=== PATIENT | male | born 1955 | race Caucasian/White ===

== ENCOUNTER 2022-07-10 10:28 | Inpatient (IN) | payer OTHER ==
[2022-07-10 11:00] LABS: Absolute Lymphocytes (CBC) 0.6 K/uL (0.7-4.9); Hematocrit 34.4 % (39.6-49.0); Lymphocytes % 8.3 % (15.3-44.8); MCV 96.7 fL (80-100); RBC Red Blood Cell Count 3.56 M/uL (4.33-5.43)
[2022-07-10 11:42] LABS: Bilirubin Total 0.4 mg/dL (0.2-1.0); Potassium 5.1 mEq/L (3.5-5.1); Protein, Total 6.7 g/dL (6.4-8.2)
--- NOTE | 2022-07-10 12:13 | RAD REPORT ---
EXAM DESCRIPTION: CTAbdomen Pelvis Wo Contrast - 07/10/2022 12:04 pm CLINICAL HISTORY: ABD PAIN COMPARISON: No comparisons TECHNIQUE: CT of the abdomen and pelvis was performed. All CT scans are performed using dose optimization technique as appropriate and may include automated exposure control or mA/KV adjustment according to patient size. FINDINGS: Lower chest: Coronary artery calcifications. Liver: No acute abnormality or suspicious lesions. Focal fat along the falciform ligament. Biliary: No biliary ductal dilatation. Stomach: No significant focal abnormality. Duodenum: No significant focal abnormality. Pancreas: There are a few calcifications in the region of the head of the pancreas which is presumabl y sequela of chronic pancreatitis. Spleen: No significant abnormality. Adrenal: No suspicious lesions. Kidney/ureter: No hydronephrosis. No renal calculi. Renal vascular calcifications. Retroperitoneum: No retroperitoneal adenopathy. Vascular: Atherosclerosis. Bowel: Small bowel wall thickening is present involving the duodenum and proximal jejunum. No obstruc tion identified.. Diverticulosis without diverticulitis . Normal appendix. Peritoneum: No ascites or free air. Bladder: Grossly unremarkable. Reproductive: No adnexal masses. Bones: No acute fracture. Multilevel degenerate disc disease which is moderate to severe. Retrolisthe sis of L1 on L2, L2 on L3, and L3 on L4 noted. Severe neural foraminal narrowing is present. There is likely at least moderate if not severe central spinal stenosis. These findings can be assessed with MRI if clinically indicated. Hemangioma in L1. Several Schmorl's nodes noted. Other: n/a IMPRESSION: 1. Duodenal and jejunal wall thickening concerning for an enteritis. No bowel obstructio n. 2. Incidental findings as noted above.
--- NOTE | 2022-07-10 13:08 | EDPHYS ---
Physician Documentation [facility] Name: Edy Early Age: 66 yrs Sex: Male : 1955 Arrival Date: 07/10/2022 Time: 10:28 Bed 7 Private MD: ED Physician Tommy Mcbride HPI: 07/10 16:49 This 66 yrs old Male presents to ER via Wheelchair with complaints of Abdominal Pain. kdr 16:49 Patient presents with generalized abdominal and back pain. Specifically he claims that kdr his low back "kidneys" are hurting. Patient is unclear about how long this has been going on. But it may have been for some time. Patient is being seen by a police academy program coordinator (Dr. Miranda sAh) and is noted to have kidney disease. Onset: The symptoms/episode began/occurred at an unknown time. Severity of symptoms: At their worst the symptoms were mild moderate just prior to arrival, in the emergency department the symptoms are unchanged. The patient has experienced similar episodes in the past, chronically, but today's symptoms are worse. The patient has been recently seen by a physician: Nephrology. Historical: - Allergies: 10:42 No Known Allergies; hb - Home Meds: 10:43 Unable to obtain [Active]; hb - PMHx: 10:42 Hypertension; DM2; hb - PSHx: 10:43 Unable to Obtain; hb - Immunization history:: Adult Immunizations unknown. - Social history:: Smoking status: Patient denies any tobacco usage or history of. ROS: 16:49 Constitutional: Negative for fever, chills, and weight loss, Eyes: Negative for injury, kdr pain, redness, and discharge, Neck: Negative for injury, pain, and swelling, Cardiovascular: Negative for chest pain, palpitations, and edema, Respiratory: Negative for shortness of breath, cough, wheezing, and pleuritic chest pain, : Negative for injury, bleeding, discharge, and swelling, MS/Extremity: Negative for injury and deformity, Skin: Negative for injury, rash, and discoloration, Neuro: Negative for headache, weakness, numbness, tingling, and seizure activity. Psych: Negative for depression, anxiety, suicide ideation, homicidal ideation, and hallucinations, Allergy/Immunology: Negative for hives, rash, and allergies, Endocrine: Negative for neck swelling, polydipsia, polyuria, polyphagia, and marked weight changes, Hematologic/Lymphatic: Negative for swollen nodes, abnormal bleeding, and unusual bruising. 16:49 Abdomen/GI: Positive for abdominal pain, Negative for nausea and vomiting, nausea, vomiting, and diarrhea, nausea, vomiting, diarrhea, constipation, abdominal cramps, abdominal distension. 16:52 Eyes: Positive for The patient states he has been blind for several months but has not kdr been evaluated for this nor does he have a reason why.. Exam: 16:49 Constitutional: This is a well developed, well nourished patient who is awake, alert, kdr and in no acute distress. Head/Face: Normocephalic, atraumatic. Eyes: Pupils equal round and reactive to light, extra-ocular motions intact. Lids and lashes normal. Conjunctiva and sclera are non-icteric and not injected. Cornea within normal limits. Periorbital areas with no swelling, redness, or edema. Neck: Trachea midline, no thyromegaly or masses palpated, and no cervical lymphadenopathy. Supple, full range of motion without nuchal rigidity, or vertebral point tenderness. No Meningismus. Chest/axilla: Normal chest wall appearance and motion. Nontender with no deformity. No lesions are appreciated. Cardiovascular: Regular rate and rhythm with a normal S1 and S2. No gallops, murmurs, or rubs. Normal PMI, no JVD. No pulse deficits. Respiratory: Lungs have equal breath sounds bilaterally, clear to auscultation and percussion. No rales, rhonchi or wheezes noted. No increased work of breathing, no retractions or nasal flaring. Abdomen/GI: Soft, non-tender, with normal bowel sounds. No distension or tympany. No guarding or rebound. No evidence of tenderness throughout. Back: No spinal tenderness. No costovertebral tenderness. Full range of motion. Skin: Warm, dry with normal turgor. Normal color with no rashes, no lesions, and no evidence of cellulitis. MS/ Extremity: Pulses equal, no cyanosis. Neurovascular intact. Full, normal range of motion. Neuro: Awake and alert, GCS 15, oriented to person, place, time, and situation. Cranial nerves II-XII grossly intact. Motor strength 5/5 in all extremities. Sensory grossly intact. Cerebellar exam normal. Normal gait. Psych: Awake, alert, with orientation to person, place and time. Behavior, mood, and affect are within normal limits. Vital Signs: 10:41 BP 176 / 80; Pulse 77; Resp 18; Temp 98.8(O); Pulse Ox 100% on R/A; Weight 72.57 kg; hb Height 5 ft. 7 in. ; Pain 5/10; 10:59 BP 163 / 85; Pulse 76; Resp 18; Pulse Ox 100% ; ko1 11:33 BP 170 / 80; Pulse 78; Resp 16; Pulse Ox 98% ; ko1 12:30 BP 184 / 88; Pulse 79; Resp 16; Pulse Ox 100% ; bp 10:41 Body Mass Index 25.06 (72.57 kg, 170.18 cm) hb 10:41 Pain Scale: Adult hb MDM: 13:08 Patient medically screened. kdr 16:53 Data reviewed: vital signs, nurses notes, lab test result(s), radiologic studies. [facility] 07/10 10:34 Order name: CBC with Diff; Complete Time: 12:13 [facility] 07/10 10:34 Order name: CMP; Complete Time: 12:13 [facility] 07/10 10:34 Order name: Lipase; Complete Time: 12:13 [facility] 07/10 10:55 Order name: UDS [facility] 07/10 10:55 Order name: ETOH Level; Complete Time: 12:42 [facility] 07/10 10:55 Order name: Acetaminophen; Complete Time: 12:13 [facility] 07/10 10:55 Order name: Salicylate; Complete Time: 12:13 [facility] 07/10 13:18 Order name: CBC with Automated Diff [facility] 07/10 13:18 Order name: CBC with Automated Diff [facility]MN 07/10 13:18 Order name: Comprehensive Metabolic Panel [facility]MN 07/10 13:18 Order name: Comprehensive Metabolic Panel [facility]MN 07/10 10:55 Order name: CT Head Brain wo Cont [facility] 07/10 11:47 Order name: Abdomen ; Complete Time: 12:42 [facility]MN 07/10 13:18 Order name: CONS Physician Consult EDMN 07/10 13:18 Order name: Renal [facility]MN 07/10 10:34 Order name: IV Saline Lock; Complete Time: 10:52 [facility] 07/10 10:34 Order name: Labs collected and sent; Complete Time: 10:52 [facility] 07/10 11:29 Order name: Labs - recollect needed: recollect green top for ETOH level per lab; eb Complete Time: 12:17 Administered Medications: 13:47 Not Given (Other Intervention Used): NS IV 0.45 % 1000 ml IV at 75 ml/hr continuous; bp Add 1.5 amps of Bicrab to the bag Disposition Summary: 07/10/22 13:08 Hospitalization Ordered Hospitalization Status: Inpatient Admission kdr Provider: Skyler Mix Location: Telemetry/MedSur (Inpatient) kdr Condition: Fair kdr Problem: an ongoing problem kdr Symptoms: are unchanged kdr Bed/Room Type: Standard kdr Room Assignment: 229(07/10/22 13:46) eb Diagnosis - Flank pain, end-stage renal disease, hypertensive heart disease, diabetes type 2 kdr Forms: - Medication Reconciliation Form kdr - SBAR form kdr Signatures: Dispatcher [employer] EDMS Tommy Mcbride MD MD kdr Rosemary Harvey RN RN Maryanne Potts Kathy, RN RN ko1 Ki Ren RN bp Corrections: (The following items were deleted from the chart) 11:47 10:55 Abdomen Pelvis W Con+CT.RAD.BRZ ordered. EDMS EDMS 13:46 13:08 kdr eb
--- NOTE | 2022-07-10 13:08 | ER ---
Nurse's Notes [facility] Name: Edy Early Age: 66 yrs Sex: Male : 1955 Arrival Date: 07/10/2022 Time: 10:28 Bed 7 Private MD: Diagnosis: Flank pain, end-stage renal disease, hypertensive heart disease, diabetes type 2 Presentation: 07/10 10:41 Chief complaint: Patient states: "My kidneys hurt and I need shot of Morphine." Reports hb bilateral mid back pain for unknown time frame, denies N/V/D/urinary s/s. Coronavirus screen: At this time, the client does not indicate any symptoms associated with coronavirus-19. Ebola Screen: No symptoms or risks identified at this time. Initial Sepsis Screen: Does the patient meet any 2 criteria? No. Patient's initial sepsis screen is negative. Does the patient have a suspected source of infection? No. Patient's initial sepsis screen is negative. Risk Assessment: Do you want to hurt yourself or someone else? Patient reports no desire to harm self or others. Onset of symptoms is unknown. 10:41 Method Of Arrival: Wheelchair hb 10:41 Acuity: DONALD 3 hb Historical: - Allergies: 10:42 No Known Allergies; hb - Home Meds: 10:43 Unable to obtain [Active]; hb - PMHx: 10:42 Hypertension; DM2; hb - PSHx: 10:43 Unable to Obtain; hb - Immunization history:: Adult Immunizations unknown. - Social history:: Smoking status: Patient denies any tobacco usage or history of. Screenin:57 [facility] ED Fall Risk Assessment (Adult) History of falling in the last 3 months, ko1 including since admission No falls in past 3 months (0 pts) Confusion or Disorientation No (0 pts) Intoxicated or Sedated No (0 pts) Impaired Gait No (0 pts) Mobility Assist Device Used No (0 pt) Altered Elimination No (0 pt) Score/Fall Risk Level 0 - 2 = Low Risk Oriented to surroundings, Maintained a safe environment, Educated pt \\T\\ family on fall prevention, incl call for assistance when getting out of bed, Assessed \\T\\ reinforced patient's understanding of fall precautions, Provided non-skid footwear, Hourly rounding (assess needs \\T\\ fall precautionary measures) done, Used ambulatory aids as needed (educated on \\T\\ assisted with), Used gait belt as appropriate. Abuse screen: Denies threats or abuse. Denies injuries from another. Nutritional screening: No deficits noted. Tuberculosis screening: No symptoms or risk factors identified. Assessment: 10:40 General: Appears in no apparent distress. comfortable, Behavior is cooperative, ko1 appropriate for age, anxious. Pain: Pain: Complains of pain in left mid back and right mid back. Neuro: No deficits noted. Cardiovascular: No deficits noted. Respiratory: No deficits noted. GI: Bowel sounds present X 4 quads. Abd is soft and non tender X 4 quads. : No deficits noted. EENT: No deficits noted. Derm: No deficits noted. Musculoskeletal: No deficits noted. 10:40 EENT: No deficits noted. 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 ko1 13:00 Reassessment: ADMIT INITIATED. bp Vital Signs: 10:41 BP 176 / 80; Pulse 77; Resp 18; Temp 98.8(O); Pulse Ox 100% on R/A; Weight 72.57 kg; hb Height 5 ft. 7 in. ; Pain 5/10; 10:59 BP 163 / 85; Pulse 76; Resp 18; Pulse Ox 100% ; ko1 11:33 BP 170 / 80; Pulse 78; Resp 16; Pulse Ox 98% ; ko1 12:30 BP 184 / 88; Pulse 79; Resp 16; Pulse Ox 100% ; bp 10:41 Body Mass Index 25.06 (72.57 kg, 170.18 cm) hb 10:41 Pain Scale: Adult hb ED Course: 10:30 Patient arrived in ED. ts1 10:31 Tommy Mcbride MD is Attending Physician. kdr 10:42 Triage completed. hb 10:43 Arm band placed on. hb 10:45 Ki Ren, GUMARO is Primary Nurse. bp 10:52 CBC with Diff Sent. ko1 10:52 CMP Sent. ko1 10:52 Lipase Sent. ko1 10:57 Patient has correct armband on for positive identification. Bed in low position. Call ko1 light in reach. Side rails up X2. Pulse ox on. NIBP on. 10:57 Inserted saline lock: 22 gauge in right forearm, using aseptic technique. Blood ko1 collected. 11:19 Salicylate Sent. ko1 11:19 Acetaminophen Sent. ko1 11:19 ETOH Level Sent. ko1 12:05 CT Head Brain wo Cont In Process Unspecified. EDMS 12:05 Abdomen In Process Unspecified. EDMS 13:01 Skyler Mix MD is Hospitalizing Provider. kdr 14:31 No provider procedures requiring assistance completed. Patient admitted, IV remains in ko1 place. Administered Medications: 13:47 Not Given (Other Intervention Used): NS IV 0.45 % 1000 ml IV at 75 ml/hr continuous; bp Add 1.5 amps of Bicrab to the bag Medication: 10:57 VIS not applicable for this client. ko1 Outcome: 13:08 Decision to Hospitalize by Provider. kdr 14:31 Admitted to Med/surg accompanied by tech, family with patient, via wheelchair, room ko1 229, on monitor, with chart. 14:31 Condition: stable 14:31 Discharge instructions given to Instructed on the need for admit, Demonstrated understanding of instructions. 14:52 Patient left the ED. ko1 Signatures: Dispatcher [employer] EDME Tommy Mcbride MD MD kdr Rosemary Harvey, RN RN Ki Ren, GUMARO RN Nusrat Rankin, GUMARO RN ko1 Janet Coe PAS PAS ts1 Corrections: (The following items were deleted from the chart) 10:56 10:40 Pain: ko1 ko1
[2022-07-10] MEDS ORDERED: ONDANSETRON 4 MG/2 ML VIAL IV PRN (13:14)
[2022-07-10] MEDS ORDERED: HYDROMORPHONE HCL 2 MG/ML inj IV PRN (13:16)
[2022-07-10] MEDS ORDERED: HYDRALAZINE HCL 20 MG/ML VIAL IV PRN (13:29)
[2022-07-10] MEDS ORDERED: HYDROMORPHONE HCL 1 MG/ML INJ IV PRN (13:33)
--- NOTE | 2022-07-10 13:33 | P.HP ---
Certification for Inpatient With expected LOS: >2 Midnights Practitioner: I am a practitioner with admitting privileges, knowledge of patient current condition, hospital course, and medical plan of care. Services: Services provided to patient in accordance with Admission requirements found in Title 42 Section 412.3 of the Code of Federal Regulations Patient History Date of Service: 07/10/22 Reason for admission: Acute on chronic renal failure severe hypertension History of Present Illness: Patient is 66 years of age very unkept admitted to the emergency room and is blind apparently was brought by a relative complaining of history of back pain denies any shortness of breath lower extremity edema lives in [place] no denies any fever or chills Allergies No Known Allergies Allergy (Unverified 07/10/22 13:27) Review of Systems 10-point ROS is otherwise unremarkable General: Weakness Physical Examination - Vital Signs Temperature: 98.8 F Blood Pressure: 176/80 Pulse: 77 Respirations: 18 Pulse Ox (%): 100 - Physical Exam General: Alert, Oriented x3 Cardiovascular: Regular rate/rhythm, Normal S1 S2 Gastrointestinal: Normal bowel sounds, Soft and benign, Non-distended Musculoskeletal: No clubbing, No swelling Integumentary: No rashes, No breakdown, No significant lesion Neurological: Normal speech, Normal strength at 5/5 x4 extr - Studies Laboratory Data (last 24 hrs) 07/10/22 10:45: Sodium 138, Potassium 5.1, BUN 83 H, Creatinine 8.02 H, Glucose 220 H, Total Bilirubin 0.4, AST 42 H, ALT 41, Alkaline Phosphatase 95, Lipase 156 H 07/10/22 10:45: WBC 6.80, Hgb 11.2 L, Hct 34.4 L, Plt Count 219 Assessment and Plan - Problems (Diagnosis) (1) Acute on chronic renal failure Current Visit: Yes Status: Acute Plan: Patient is 66 years of age admitted with nonspecific back pain he has acute on chronic renal failure with a creatinine of 8 mild metabolic acidosis history of uncontrolled hypertension he does not take any medication noncompliant history of diabetes apparently he does take something for it CT scan of the abdomen shows nonspecific enteritis denies any abdominal complaints no diarrhea labs reviewed there is no hydronephrosis plan to admit start on D5 water with b icarbonate as per nephrology patient is blind Qualifiers: Chronic kidney disease stage: stage 4 (severe) (2) Diabetes Current Visit: Yes Status: Acute Plan: Patient is noncompliant blood sugar elevated we will check A1c and lipid profile Qualifiers: Diabetes mellitus type: type 2 (3) Alcohol abuse Current Visit: Yes Status: Acute Plan: Po Librium Ativan, Gabapentin and Thiamine - Advance Directives Does patient have a Living Will: No Does patient have a Durable POA for Healthcare: No
--- NOTE | 2022-07-10 13:43 | P.CNS ---
Date of Consult: 07/10/22 Reason for Consult: renal failure Requesting Physician: Skyler Mix Chief Complaint: Acute on chronic renal failure severe hypertension History of Present Illness: 66M w/ PMHx of CKD, unclear stage, presumed to be 2/2 Htn/DM, Htn, DM2, & dementia who p/w mid-back pain found to have SCr 8 / GFR 7. He had [facility] in March 2022 that showed a GFR of 10. He was admitted at [facility] in [place] in March 2022 & was told he needed to start dialysis but he refused. He denies chronic NSAID use, N/V/SOB. Allergies No Known Allergies Allergy (Unverified 07/10/22 13:27) Home Medications: Aspirin [Tiffanie Chewable Aspirin] 1 tab PO DAILY 07/10/22 Review of Systems General: Weakness Eyes: Other (+bilateral eye blindness) ENT: Unremarkable Respiratory: Unremarkable Cardiovascular: Unremarkable Gastrointestinal: Unremarkable Genitourinary: Unremarkable Musculoskeletal: Unremarkable Integumentary: Unremarkable Neurological: Other (+Dementia) Lymphatics: Unremarkable Physical Examination Temp Pulse Resp BP Pulse Ox 98.8 F 77 18 176/80 H 100 07/10/22 13:36 07/10/22 13:36 07/10/22 13:36 07/10/22 13:36 07/10/22 13:36 General: Other (chronically ill-appearing) HEENT: Atraumatic, Normocephalic Neck: Supple, JVD not distended Respiratory: Clear to auscultation bilaterally, Other (symmetric chest expansion) Cardiovascular: No rubs, No murmurs Gastrointestinal: Soft and benign, No guarding Musculoskeletal: No clubbing Integumentary: No warmth Neurological: Normal tone, Dementia Urinary: Other (no bladder distention) External genitalia: Deferred Rectal: Deferred Laboratory Data (last 24 hrs) 07/10/22 10:45: Sodium 138, Potassium 5.1, BUN 83 H, Creatinine 8.02 H, Glucose 220 H, Total Bilirubin 0.4, AST 42 H, ALT 41, Alkaline Phosphatase 95, Lipase 156 H 07/10/22 10:45: WBC 6.80, Hgb 11.2 L, Hct 34.4 L, Plt Count 219 Conclusions/Impression: # ESRD presumed to be 2/2 Htn/DM GFR 7 on adm, was 10 in March 2022 Urinalysis showed heavy proteinuria, no hematuria, no pyuria Urine chemistry non-prerenal KUB unremarkable on CT A/P Insert rodas IVF for 24 hrs BNP sig elevated CPK wnl, no rhabdo BP & glycemic control May pursue kidney biopsy once BP is better controlled Pt was advised to start HD in March 2022 when he was at [facility] but he refused May initiate chronic HD during this adm if pt/family agreeable # 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
[2022-07-10] MEDS ORDERED: LABETALOL 20 MG/4ML SYRINGE IV PRN (14:41)
[2022-07-10 15:53] LABS: Barbiturates NEGATIVE (NEGATIVE); Benzodiazepines NEGATIVE (NEGATIVE); Cocaine NEGATIVE (NEGATIVE); METHAMPHETAM NEGATIVE (NEGATIVE); Methadone NEGATIVE (NEGATIVE); Opiates NEGATIVE (NEGATIVE); Phencyclidine NEGATIVE (NEGATIVE); THC Cannibis NEGATIVE (NEGATIVE)
[2022-07-10] MEDS ORDERED: LORazepam 2 MG/ML VIAL IV PRN (15:54)
[2022-07-10 16:01] VITALS: BMI 25.0
[2022-07-10] MEDS ORDERED: chlordiazePOXIDE HCl 5 MG CAP PO PRN (16:25)
[2022-07-10] MEDS: INSULIN -REGULAR HUMAN 50 UNIT/0.5 ML ML SQ SCH ×2 (16:30→20:29)
[2022-07-10] MEDS: D5W 1,000 ML with NA BICARB 8.4% 100 MEQ IV SCH ×2 (16:41)
[2022-07-10] MEDS: AMLODIPINE 5 MG TAB PO SCH (16:41)
[2022-07-10 16:52] LABS: Specific Gravity 1.012 (1.005-1.030); Urine Bacteria <20 /HPF (<20); Urine Bilirubin NEGATIVE (Negative); Urine Blood 1+ (Negative); Urine Clarity Clear (Clear); Urine Color Colorless (Yellow); Urine Glucose 3+ (Negative); Urine Protein 3+ (Negative); Urine RBC <5 /HPF (None Seen); Urine Urobilinogen Normal (Normal)
[2022-07-10 17:01] LABS: UR PROTEIN 401.8 mg/dL (<11.9); Urine Protein/Creatinine Ratio 9.34 ratio (<0.15)
[2022-07-10] MEDS: GABAPENTIN 100 MG CAP PO SCH (20:37)
[2022-07-10] MEDS: THIAMINE HCL 100 MG TABLET PO SCH (20:38)
[2022-07-10 21:11] LABS: Ferritin 32.2 ng/mL (26-388)
[2022-07-11] MEDS: D5W 1,000 ML with NA BICARB 8.4% 100 MEQ IV SCH ×2 (04:54)
[2022-07-11 06:00] LABS: Hematocrit 27.6 % (39.6-49.0); Lymphocytes % 15.9 % (15.3-44.8); MCV 95.9 fL (80-100); RBC Red Blood Cell Count 2.88 M/uL (4.33-5.43)
[2022-07-11 06:20] LABS: Albumin 2.2 g/dL (3.4-5.0); Bilirubin Total 0.3 mg/dL (0.2-1.0); Potassium 3.4 mEq/L (3.5-5.1); Protein, Total 5.2 g/dL (6.4-8.2)
[2022-07-11 06:23] LABS: Thyroid Stimulating Hormone 4.23 uIU/mL (0.358-3.740)
[2022-07-11] MEDS: INSULIN -REGULAR HUMAN 50 UNIT/0.5 ML ML SQ SCH ×4 (07:30→20:14)
[2022-07-11] MEDS: GABAPENTIN 100 MG CAP PO SCH (09:00)
--- NOTE | 2022-07-11 09:26 | P.PN ---
Subjective Date of Service: 07/11/22 Chief Complaint: Acute on chronic renal failure severe hypertension Subjective: Improving (Patient is improving back pain is better no new complaints) Review of Systems 10-point ROS is otherwise unremarkable General: Weakness Physical Examination - Vital Signs Temperature: 98.5 F Blood Pressure: 128/73 Pulse: 58 Respirations: 16 Pulse Ox (%): 100 - Physical Exam General: Alert, Oriented x3 Respiratory: Clear to auscultation bilaterally Cardiovascular: No edema, Regular rate/rhythm, Normal S1 S2 - Studies Laboratory Data (last 24 hrs) 07/10/22 10:45: Sodium 138, Potassium 5.1, BUN 83 H, Creatinine 8.02 H, Glucose 220 H, Total Bilirubin 0.4, AST 42 H, ALT 41, Alkaline Phosphatase 95, Lipase 156 H 07/10/22 10:45: WBC 6.80, Hgb 11.2 L, Hct 34.4 L, Plt Count 219 Assessment And Plan - Current Problems (Diagnosis) (1) Acute on chronic renal failure Current Visit: Yes Status: Acute Plan: Patient seen by nephrology renal function is improving blood pressure is also normal now urinalysis reviewed he has proteinuria continue with IV fluid Labs reviewed history of alcoholism Qualifiers: Chronic kidney disease stage: stage 4 (severe) (2) Diabetes Current Visit: Yes Status: Acute Plan: Patient's A1c is normal doubt underlying diabetes Qualifiers: Diabetes mellitus type: type 2 (3) Alcohol abuse Current Visit: Yes Status: Acute Plan: Po Librium Ativan, Gabapentin and Thiamine
[2022-07-11] MEDS: THIAMINE HCL 100 MG TABLET PO SCH ×2 (10:00→20:12)
[2022-07-11] MEDS: AMLODIPINE 5 MG TAB PO SCH (10:00)
[2022-07-11 10:14] LABS: Phosphorus 8.4 mg/dL (2.5-4.9)
--- NOTE | 2022-07-11 19:03 | PN ---
Date of Progress Note: 07/11/2022 Chief Complaint: Acute on chronic kidney injury. Subjective: Patient has history of advanced chronic kidney disease stage 4 secondary to hypertension , diabetes mellitus, history of dementia. Patient came with complaints of mid back pain. Was found to have elevated creatinine and a GFR of 7 and creatinine level of 8. Back in March 2022, GFR was 10. Patient was admitted to [facility] at [place] in March 2022 and it was told that he needed dialysis, but he refused dialysis. Today, he denies complaints. He denies nausea and vomiti ng. Denies metallic taste in the mouth. Physical Examination: Lungs: Clear to auscultation bilaterally. Heart: S1, S2. Abdomen: Soft. Extremities: Slight edema. Impression And Plan: 1.Patient has elevated azotemia. The patient likely has end-stage renal disease. [facility] and is on IV fluids and there is no response to IV hydration. Renal function has not imp roved. Patient is tolerating IV hydration. Patient was admitted for nausea, vomiting, and he is cur rently on IV fluid. He is advancing with p.o. intake. He does not have rhabdomyolysis. CPK level w as within normal limits and glycemia is in an acceptable control. Patient may require renal biopsy w hen blood pressure is controlled and he is ruled out for urinary tract infection. Patient has nephro tic range proteinuria, which corresponds with diabetic kidney disease, although the renal biopsy need s to be done to rule out other etiology. 2.Secondary hyperparathyroidism. Continue calcitriol and vitamin D as above. 3.Chronic metabolic acidosis due to renal failure. Continue bicarbonate as needed. Monitor blood w ork. 4.Enteritis. CT scan showed nonspecific enteritis. Further recommendation from primary team. EB/MODL Voice ID: [id number] Report ID: [id number]
[2022-07-11 19:18] LABS: Potassium 3.5 mEq/L (3.5-5.1)
[2022-07-11] MEDS: NACHLORIDE 0.45% 1,000 ML IV SCH (20:11)
[2022-07-11 21:34] LABS: Specific Gravity 1.012 (1.005-1.030); Urine Bacteria None Seen /HPF (<20); Urine Bilirubin NEGATIVE (Negative); Urine Blood 2+ (Negative); Urine Clarity Clear (Clear); Urine Color Colorless (Yellow); Urine Glucose 3+ (Negative); Urine Mucus Slight /HPF (None Seen); Urine Protein 3+ (Negative); Urine RBC 21-50 /HPF (None Seen); Urine Urobilinogen Normal (Normal)
[2022-07-12 00:44] LABS: Rheumatoid Factor NEG (NEG)
[2022-07-12 06:49] LABS: Albumin 2.2 g/dL (3.4-5.0); Bilirubin Total 0.1 mg/dL (0.2-1.0); Potassium 3.4 mEq/L (3.5-5.1); Protein, Total 5.1 g/dL (6.4-8.2)
[2022-07-12] MEDS: INSULIN -REGULAR HUMAN 50 UNIT/0.5 ML ML SQ SCH ×4 (07:30→20:26)
--- NOTE | 2022-07-12 07:46 | RAD REPORT ---
EXAM DESCRIPTION: US - Renal Ultrasound-Complete - 07/12/2022 6:17 am CLINICAL HISTORY: jeniffer, ckd Flank pain COMPARISON: <Comparisons> FINDINGS: Both kidneys demonstrate increased echogenicity compatible with underlying medical renal d isease. The right kidney measures 9.9 x 5.3 x 4.7 cm. No hydronephrosis, focal mass or perinephric fluid. The left kidney measures 10.1 x 4.6 x 4.4 cm. No hydronephrosis, focal mass or perinephric fluid. The urinary bladder is incompletely distended without gross abnormality seen. IMPRESSION: Increased echogenicity of both kidneys compatible with underlying medical renal disease.
--- NOTE | 2022-07-12 09:48 | P.PN ---
Subjective Date of Service: 07/12/22 Chief Complaint: Acute on chronic renal failure severe hypertension Subjective: Improving (Patient denies any complaints no discomfort) Review of Systems Unremarkable Physical Examination - Vital Signs Temperature: 97.6 F Blood Pressure: 144/78 Pulse: 72 Respirations: 18 Pulse Ox (%): 100 - Physical Exam General: Alert, In no apparent distress, Oriented x3 Respiratory: Clear to auscultation bilaterally Cardiovascular: No edema, Regular rate/rhythm, Normal S1 S2 Assessment And Plan - Current Problems (Diagnosis) (1) Acute on chronic renal failure Current Visit: Yes Status: Acute Plan: Patient is renal function is improving seen by network strategist on IV fluids vital signs oxygenation stable continue monitoring hypokalemia replace potassium Labs ordered Qualifiers: Chronic kidney disease stage: stage 4 (severe) (2) Diabetes Current Visit: Yes Status: Acute Plan: Patient's A1c is normal doubt underlying diabetes Qualifiers: Diabetes mellitus type: type 2 (3) Alcohol abuse Current Visit: Yes Status: Acute Plan: Po Librium Ativan, Gabapentin and Thiamine
[2022-07-12] MEDS: AMLODIPINE 5 MG TAB PO SCH (10:17)
[2022-07-12] MEDS: THIAMINE HCL 100 MG TABLET PO SCH ×2 (10:17→20:25)
[2022-07-12] MEDS: VITAMIN D 1000 UNIT TAB PO SCH (10:17)
[2022-07-12] MEDS: CALCITROL 0.25 MCG CAP PO SCH (10:18)
[2022-07-12] MEDS: NACHLORIDE 0.45% 1,000 ML IV SCH ×3 (10:18→23:23)
[2022-07-12] MEDS: POTASSIUM 25 MEQ EFFERV TAB PO SCH ×2 (10:22→20:25)
--- NOTE | 2022-07-13 00:15 | PN ---
Date of Progress Note: 07/12/2022 Chief Complaint: Acute on chronic kidney injury. Subjective: Patient has history of advanced chronic kidney disease stage 4 secondary to hypertension and diabetes mellitus. The patient came to the hospital because of mid abdomen and mid back pain. He denies hematuria, dysuria, incomplete voiding. He was found to have elevated creatinine level and GFR of 7. Creatinine level was up to 8. Patient, back in March had lab work done, his GFR was 10 . Previously, he was admitted to [facility] in March 2022, and he was told t hat he would need dialysis in near future and he refused dialysis to be started in the hospital and p atient is started on IV fluids. He denies nausea or vomiting. He denies metallic taste in his mouth . Review of Systems: Denies fever or chills. Physical Examination: Lungs: Normal respiratory effort. Heart: S1, S2. Abdomen: Soft. Extremities: Minimal edema. Impression And Plan: 1.Elevated azotemia. Patient does not have uremic symptomatology, although he has advanced chronic kidney disease, stage 5 chronic kidney disease and he will need to start hemodialysis for advanced ch ronic kidney disease to prevent uremia. I had a long discussion with the patient. The dialysis will be necessary to treat hyperazotemia. Patient is tolerating IV fluids. Continue IV fluids and monit or for any evidence of fluid overload. Patient had a CK level check and he does not have rhabdomyoly sis. Patient has nephrotic range proteinuria, which corresponds with diabetic kidney disease, althou gh renal biopsy needs to be done to rule out other etiology. Renal ultrasound did not demonstrate hy dronephrosis. There is increased kidney echogenicity corresponding with medical renal disease. 2.Secondary hyperparathyroidism. Continue calcitriol and vitamin D and monitor phosphorus level, ca lcium level, and intact PTH. Re-evaluate 25-hydroxy vitamin D. 3.Chronic metabolic acidosis due to renal failure. Continue bicarbonate according to lab results. 4.Enteritis. CT scan show nonspecific enteritis. At this point, patient is tolerating p.o. intake and IV fluids were started for acute on chronic kidney injury. There is some improvement in serum cr eatinine level, although lab work showed GFR of 8 and this will require dialysis treatment. EB/MODL Voice ID: [id number] Report ID: [id number]
[2022-07-13 03:26] LABS: RPR (Rapid Plasma Reagin) NON-REACT (NON-REACT)
[2022-07-13 04:36] LABS: Hepatitis B Core Ab, Total Nonreactive (Nonreactive); Hepatitis B surface AG Interp. Nonreactive (Nonreactive); Hepatitis C Virus Ab Nonreactive (Nonreactive)
[2022-07-13 04:42] LABS: Hepatitis B Surface Ab - Quant < 3.10 mIU/mL (<8.0)
[2022-07-13 07:00] LABS: Absolute Lymphocytes (CBC) 0.8 K/uL (0.7-4.9); Hematocrit 27.9 % (39.6-49.0); Lymphocytes % 12.8 % (15.3-44.8); MPV 7.2 fL (7.6-11.3); RBC Red Blood Cell Count 2.87 M/uL (4.33-5.43)
--- NOTE | 2022-07-13 07:06 | P.PN ---
Date of Service: 07/13/22 Subjective: complains of right posterior chest/upper back pain no BM since before hospitalization; +flatus some confusion this morning; repeating questions no acute events overnight ROS: 10 point ROS as noted above, otherwise negative Physical Exam: GEN: Alert, oriented, NAD, confused/repetitive questioning HEENT: blind, no swelling CV: Regular rate and rhythm, no edema Pulm: Nonlabored respirations on room air ABD: Soft, nontender, nondistended Integumentary: No rashes Neuro: Normal speech, normal affect Renner in place vitals reviewed Problem List: Acute on chronic renal failure, CKD5 ESRD Hypokalemia Enteritis Hypertension DM2 Anemia Dementia Alcohol abuse legally blind Acute on chronic renal failure, CKD5 ESRD Hypokalemia Pt was advised to start HD in March 2022 for GFR 10 - refused at the time nephrotic range proteinura likely secondary to diabetic kidney disease no hydronephrosis on imaging Nephrology consulted Recommends HD continue IVF mild improvement of GFR biopsy Renner in place renal u/s 07/12 - Increased echogenicity of both kidneys IVF IV bicarb PT consult Enteritis CT Abdomen 07/10 - Duodenal and jejunal wall thickening concerning for an enteritis denies abd pain 07/13, tolerating PO DM2 Patient's A1c is normal, controlled Hypertension Anemia Dementia Continue home medcations Continue Supportive care Alcohol abuse Counseled on need for cessation of all alcohol Po Librium Ativan, Gabapentin and Thiamine some confusion, unclear what baseline is Code: Full Dispo: Home several days
[2022-07-13 07:14] LABS: Albumin 2.2 g/dL (3.4-5.0); Bilirubin Total 0.2 mg/dL (0.2-1.0); Potassium 3.7 mEq/L (3.5-5.1); Protein, Total 5.2 g/dL (6.4-8.2)
[2022-07-13] MEDS: INSULIN -REGULAR HUMAN 50 UNIT/0.5 ML ML SQ SCH ×4 (07:30→21:00)
[2022-07-13] MEDS: VITAMIN D 1000 UNIT TAB PO SCH (08:25)
[2022-07-13] MEDS: POTASSIUM 25 MEQ EFFERV TAB PO SCH ×2 (08:25→21:36)
[2022-07-13] MEDS: AMLODIPINE 5 MG TAB PO SCH (08:25)
[2022-07-13] MEDS: CALCITROL 0.25 MCG CAP PO SCH (08:25)
[2022-07-13] MEDS: THIAMINE HCL 100 MG TABLET PO SCH ×2 (08:25→21:36)
[2022-07-13] MEDS: CODEINE 30MG/APAP 300MG TAB PO PRN (09:42)
[2022-07-13] MEDS: NACHLORIDE 0.45% 1,000 ML IV SCH (10:26)
[2022-07-14] MEDS: NACHLORIDE 0.45% 1,000 ML IV SCH ×3 (00:20→13:40)
[2022-07-14 03:40] LABS: Hematocrit 27.6 % (39.6-49.0); MCV 96.7 fL (80-100); MPV 7.2 fL (7.6-11.3); RBC Red Blood Cell Count 2.85 M/uL (4.33-5.43)
--- NOTE | 2022-07-14 03:48 | PN ---
Date of Progress Note: 07/13/2022 Chief Complaint: Advanced chronic kidney disease, end-stage renal disease. History Of Present Illness: The patient presented with worsening of azotemia. Prior to this admissi on, he developed some generalized weakness as well as abdominal pain and he was started on IV fluids for hydration. On arrival to this hospital, blood work showed severe hyperazotemia. The patient has a Renner catheter and he has nonoliguric urine output. Ultrasound, July 11, showed increased echogeni city of both kidneys secondary to medical kidney disease. I discussed with the patient at the [facility] e plan to proceed with hemodialysis. The patient has not made decision and his daughter also was enc ouraging him to start dialysis because he has advanced chronic kidney disease and may have a risk of uremia in the near future if he does not start dialysis. The patient has not made decision to procee d with renal biopsy. He has history of diabetes mellitus and his diabetes has been well controlled. Review of Systems: Denies fever, chills. Physical Examination: Lungs: Normal respiratory effort. Heart: S1, S2. Abdomen: Soft. Extremities: No edema. Impression And Plan: Acute on chronic kidney injury, worsening of the hyperazotemia secondary to gas troenteritis. Although there is underlying advanced chronic kidney disease and renal ultrasound joni esponds with end-stage renal disease, the patient may need to start dialysis in near future. Otherwi se, he may develop uremic symptoms. I had a long discussion with the patient and his daughter at the bedside. The patient und erstands risk of uremia. EB/MODL Voice ID: [id number] Report ID: [id number]
[2022-07-14 04:13] LABS: Potassium 3.9 mEq/L (3.5-5.1)
[2022-07-14] MEDS: INSULIN -REGULAR HUMAN 50 UNIT/0.5 ML ML SQ SCH ×4 (07:30→20:23)
[2022-07-14] MEDS: THIAMINE HCL 100 MG TABLET PO SCH ×2 (09:00→20:21)
[2022-07-14] MEDS: CALCITROL 0.25 MCG CAP PO SCH (09:00)
[2022-07-14] MEDS: VITAMIN D 1000 UNIT TAB PO SCH (09:00)
[2022-07-14] MEDS: AMLODIPINE 5 MG TAB PO SCH (09:00)
[2022-07-14] MEDS: POTASSIUM 25 MEQ EFFERV TAB PO SCH ×2 (09:00→19:12)
[2022-07-14] MEDS ORDERED: SOD FERRIC GLUC COMPLX/SUCROSE 250 MG in NA CHLORIDE 0.9% 250 ML IV SCH (15:00)
--- NOTE | 2022-07-14 16:36 | PN ---
Date of Progress Note: 07/14/2022 Subjective: The patient was admitted with progression of his chronic kidney disease. The patient had chronic kidney disease, advanced, seen in the office before, the patient in denial. The patient is still refusing renal replacement therapy. Physical Examination: Vital Signs: When I saw the patient; blood pressure 170/91, pulse of 80. The patient legally blind. Chest: Clear to auscultation. Heart: S1, S2. Regular. Abdomen: Soft, nontender. Extremity: No edema. Neuro: The patient legally blind. No tremor. Laboratory Data: Hemoglobin 9.3. Sodium 139, potassium 3.9, bicarb 25, BUN 70, creatinine 6, GFR of 10, calcium 8.3. Serum protein electrophoresis is still pending. Serology is still pending. Hepatitis was negative. Current Medications: The patient on include; 1. Amlodipine 5 mg. 2. Labetalol. 3. Hydralazine. 4. Insulin. 5. Normal saline. 6. Codeine. 7. KCl. 8. Calcitriol. Assessment And Plan: 1. Chronic kidney disease, stage 5. No uremic symptoms. No hyperkalemia. No acidosis. 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 The patient will need to be started on dialysis in the near future. The patient is still on denial, refused any dialysis for the time being. The patient looked to me normal volume. I am going to hold IV fluid and we will continue to monitor the patient. 2. Hypertension, not controlled. I am going to go ahead and increase his amlodipine 10 mg for better blood pressure control and we will add beta-vandana and we will follow up the patient. 3. Secondary hyperparathyroidism. Continue calcitriol. 4. Anemia of chronic kidney disease with iron deficiency anemia. I will start the patient on IV iron and we will continue to follow up the patient. 5. Diabetes, stable. We will monitor. time spend exam the patient face to face , reviewing the DATA lab and Radiology, placing the order, discussing the case with the patient ,reviewing the care plan with steam turbine operator including the nursing staff , discussing with the hospitalist >35 min JULISA Voice ID: [id number] Report ID: [id number] [facility]
--- NOTE | 2022-07-14 18:01 | P.PN ---
Subjective Date of Service: 07/14/22 Chief Complaint: Acute on chronic renal failure severe hypertension Patient found to be a bit confused this mrsanjeev. He thought he was in a bank. Nursing staff report he refused all treatment today. Physical Examination - Vital Signs Temperature: 98 F Blood Pressure: 161/97 Pulse: 80 Respirations: 14 Pulse Ox (%): 100 Assessment And Plan - Plan Physical Exam: GEN: Alert, oriented, NAD, confused, HEENT: blind. CV: Regular rate and rhythm, no edema Pulm: Clear to auscultation bilaterally, adequate breath sounds bilaterally. ABD: Soft, nontender, nondistended Integumentary: No rashes Neuro: Normal speech, normal affect Renner in place vitals reviewed Diagnosis Acute on chronic renal failure, CKD5 ESRD Hypokalemia Enteritis Hypertension DM2 Anemia Dementia Alcohol abuse legally blind Acute on chronic renal failure, CKD5 ESRD Hypokalemia Pt was advised to start HD in March 2022 for GFR 10 - refused at the time nephrotic range proteinura likely secondary to diabetic kidney disease no hydronephrosis on imaging Nephrology is following Recommends HD in the near future. IV fluid discontinued by nephrology mild improvement of GFR Renner in place renal u/s 07/12 - Increased echogenicity of both kidneys IV bicarb discontinued PT consult Enteritis CT Abdomen 07/10 - Duodenal and jejunal wall thickening concerning for an enteritis denies abd pain 07/13, Patient is tolerating PO DM2 Patient's A1c is normal, controlled Hypertension Anemia Dementia Continue home medcations Continue Supportive care Alcohol abuse Counseled on need for cessation of all alcohol Po Librium Ativan, Gabapentin and Thiamine Confusion probably related to alcohol withdrawal. Ativan as needed for agitation.
[2022-07-14] MEDS ORDERED: LORazepam 2 MG/ML VIAL IV PRN (18:03)
[2022-07-14] MEDS: CODEINE 30MG/APAP 300MG TAB PO PRN (18:08)
[2022-07-14] MEDS: carvediloL 6.25 MG TAB PO SCH (20:21)
[2022-07-15 07:09] LABS: Potassium 3.6 mEq/L (3.5-5.1)
[2022-07-15] MEDS: INSULIN -REGULAR HUMAN 50 UNIT/0.5 ML ML SQ SCH ×4 (07:30→20:30)
[2022-07-15] MEDS: AMLODIPINE 10 MG TAB PO SCH (08:30)
[2022-07-15] MEDS: POTASSIUM 25 MEQ EFFERV TAB PO SCH ×2 (08:30→19:15)
[2022-07-15] MEDS: THIAMINE HCL 100 MG TABLET PO SCH ×2 (08:30→20:46)
[2022-07-15] MEDS: VITAMIN D 1000 UNIT TAB PO SCH (08:30)
[2022-07-15] MEDS: CALCITROL 0.25 MCG CAP PO SCH (08:30)
[2022-07-15] MEDS: carvediloL 6.25 MG TAB PO SCH ×2 (08:31→20:43)
[2022-07-15] MEDS ORDERED: CLONIDINE 0.1 MG/PATCH TD SCH (10:00)
--- NOTE | 2022-07-15 11:05 | P.DS ---
Admission Date: 07/10/22 Discharge Date: 07/17/22 Disposition: ROUTINE DISCHARGE Discharge Condition: FAIR Reason for Admission: Acute on chronic renal failure severe hypertension Brief History of Present Illness: Patient is 66 years of age presented to the emergency room with complaint of back pain. Patient reported bilateral back pain and felt as if his kidneys were hurting. He denied any shortness of breath. He denied any fever or chills. Blood work showed elevated creatinine above baseline. Alcohol abuse also reported. Patient was hospitalized for further management. Hospital Course: Diagnosis Acute on chronic renal failure, CKD5 ESRD Hypokalemia Enteritis Hypertension DM2 Anemia Dementia Alcohol abuse legally blind Patient admitted to the medical floor and the following medical problems addressed: Acute on chronic renal failure, CKD5 ESRD Hypokalemia Pt was advised to start HD in March 2022 for GFR 10 -he refused at the time He has nephrotic range proteinura likely secondary to diabetic kidney disease no hydronephrosis on imaging Nephrology saw and assisted with management Recommends HD in the near future. Patient treated briefly with IV fluid and then discontinued. renal u/s 07/12 - Increased echogenicity of both kidneys He was also managed briefly with IV bicarb. Enteritis CT Abdomen 07/10 - Duodenal and jejunal wall thickening concerning for an enteritis denies abd pain 07/13, Symptoms resolved and patient tolerated PO DM2 Patient's A1c is normal, controlled Hypertension Anemia Dementia Continued home medcations Alcohol abuse Counseled on need for cessation of all alcohol He was managed with Po Librium Ativan, Gabapentin and Thiamine Initial confusion probably related to alcohol withdrawal. Mental status is currently clear. Currently undergoing PT. Patient is currently asymptomatic and deemed stable for discharge. Patient discharged to SNF for skilled rehab. Vital Signs/Physical Exam: Temp Pulse Resp BP Pulse Ox 97.6 F 63 16 194/96 H 98 07/15/22 08:00 07/15/22 08:31 07/15/22 08:00 07/15/22 08:31 07/15/22 08:00 General: Alert, In no apparent distress, Oriented x3 HEENT: Mucous membr. moist/pink Neck: JVD not distended Respiratory: Clear to auscultation bilaterally, Normal air movement Cardiovascular: Regular rate/rhythm, Normal S1 S2 Gastrointestinal: Soft and benign, Non-distended Musculoskeletal: No contractures Integumentary: No rashes Neurological: Normal strength at 5/5 x4 extr Laboratory Data at Discharge: WBC 7.00 thou/uL (4.3-10.9) 07/14/22 02:52 Hgb 9.3 g/dL (13.6-17.9) L 07/14/22 02:52 Hct 27.6 % (39.6-49.0) L 07/14/22 02:52 Plt Count 148 thou/uL (152-406) L 07/14/22 02:52 Sodium 143 mEq/L (136-145) 07/15/22 06:40 Potassium 3.6 mEq/L (3.5-5.1) 07/15/22 06:40 BUN 70 mg/dL (7-18) H 07/15/22 06:40 Creatinine 5.73 mg/dL (0.70-1.30) H 07/15/22 06:40 Glucose 105 mg/dL (74-106) 07/15/22 06:40 Phosphorus 8.4 mg/dL (2.5-4.9) H 07/11/22 09:39 Magnesium 3.0 mg/dL (1.6-2.4) H 07/11/22 09:39 Total Bilirubin 0.2 mg/dL (0.2-1.0) 07/13/22 06:42 AST 21 U/L (15-37) 07/13/22 06:42 ALT 25 U/L (16-61) 07/13/22 06:42 Alkaline Phosphatase 57 U/L (45-117) 07/13/22 06:42 Triglycerides 208 mg/dL (<150) H 07/12/22 05:17 Cholesterol 195 mg/dL (<200) 07/12/22 05:17 HDL Cholesterol 78 mg/dL (40-60) H 07/12/22 05:17 Cholesterol/HDL Ratio 2.50 07/12/22 05:17 Lipase 156 U/L (13-75) H 07/10/22 10:45 Home Medications: Aspirin [Tiffanie Chewable Aspirin] 1 tab PO DAILY 07/10/22 Amlodipine [Norvasc*] 10 mg PO DAILY #30 tab 07/15/22 Calcitrol [Rocaltrol*] 0.25 mcg PO DAILY #30 cap 07/15/22 Cholecalciferol (Vitamin D3) [Vitamin D 1000 Iu Tab*] 2,000 unit PO DAILY #60 tab 07/15/22 Clonidine Patch [Catapres-Tts 1*] 0.1 mg TD EVERY 7TH DAY #4 pat 07/15/22 Thiamine HCl [Vitamin B-1*] 200 mg PO BID #30 tab 07/15/22 carvediloL [Coreg*] 6.25 mg PO BID #60 tab 07/15/22 New Medications: Clonidine Patch [Catapres-Tts 1*] 0.1 mg TD EVERY 7TH DAY #4 pat carvediloL [Coreg*] 6.25 mg PO BID #60 tab Amlodipine [Norvasc*] 10 mg PO DAILY #30 tab Calcitrol [Rocaltrol*] 0.25 mcg PO DAILY #30 cap Thiamine HCl [Vitamin B-1*] 200 mg PO BID #30 tab Cholecalciferol (Vitamin D3) [Vitamin D 1000 Iu Tab*] 2,000 unit PO DAILY #60 tab Diet: Renal Activity: Ad nena Followup: NONE,NONE [Primary Care Provider] - Erica Nunez MD [ACTIVE - CAN ADMIT] - (Within 2 weeks) Time spent managing pt's care (in minutes): 40
--- NOTE | 2022-07-15 11:43 | PN ---
Date of Progress Note: 07/15/2022 Subjective: The patient was admitted with hypertension, uremic disease. The patient's workup showed chronic kidney disease. The patient nonoliguric, no hyperkalemia, in fact hypokalemic. Physical Examination: Vital Signs: Blood pressure 194/96, pulse of 63, afebrile. Chest: Clear to auscultation. Heart: S1, S2. Regular. Extremities: No edema. Neurologic: Alert. No focality. No tremor. Laboratory Data: Hemoglobin 9.3. Sodium 143, potassium 3.6, bicarb 23, BUN 70, creatinine 5.7, GFR of 10, calcium 8.6. PC ratio 9 g. Serology; hepatitis was negative, HIV negative. Serum protein electrophoresis is still pending. Renal ultrasound showing small sized kidneys bilateral, 9.9 and 10.1. Current Medications: The patient on include amlodipine 10 mg, carvedilol 6.25, insulin, calcitriol, cholecalciferol, and thiamine. Assessment And Plan: 1. 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 I do not see the need to initiate urgently any renal replacement therapy, especially that the patient also refused to be initiated right now. I had long discussion with the patient regarding the need for close monitoring as the patient may need renal replacement therapy in the next few months. The patient verbalized understanding. We will follow up the workup including serum protein electrophoresis and the rest of the serology as outpatient. We will keep holding any KATHERIN inhibitor and ARB. 2. Hypokalemia. We will supplement cautiously. 3. Anemia of iron deficiency anemia. Started the patient on IV iron, received a dose. We will continue to monitor. 4. Hypertension, not controlled. Add clonidine. 5. Hypokalemia. We will supplement cautiously. 6. Diabetes as by primary. 7. Alcoholic dependent. Continue thiamine. 8. Secondary hyperparathyroidism. Continue calcitriol. The patient cleared from the Renal standpoint for discharge planning to follow up in the office in 2-3 weeks. time spend exam the patient face to face , reviewing the DATA lab and Radiology, placing the order, discussing the case with the patient ,reviewing the care plan with call or contact centre team leader including the nursing staff , discussing with the hospitalist >35 min CONRADO/CHEIKH Voice ID: [id number] Report ID: [id number] TIAN
--- NOTE | 2022-07-15 15:13 | P.PN ---
Subjective Date of Service: 07/15/22 Chief Complaint: Acute on chronic renal failure severe hypertension Patient has no new complaints today. Mental status is clear. Physical Examination - Vital Signs Temperature: 97.6 F Blood Pressure: 194/96 Pulse: 63 Respirations: 16 Pulse Ox (%): 98 Assessment And Plan - Plan Physical Exam: GEN: Alert, oriented, NAD, confused, HEENT: blind. CV: Regular rate and rhythm, no edema Pulm: Clear to auscultation bilaterally, adequate breath sounds bilaterally. ABD: Soft, nontender, nondistended Integumentary: No rashes Neuro: Normal speech, normal affect Rodas in place vitals reviewed Diagnosis Acute on chronic renal failure, CKD5 ESRD Hypokalemia Enteritis Hypertension DM2 Anemia Dementia Alcohol abuse legally blind Acute on chronic renal failure, CKD5 ESRD Hypokalemia Pt was advised to start HD in March 2022 for GFR 10 - refused at the time nephrotic range proteinura likely secondary to diabetic kidney disease no hydronephrosis on imaging Nephrology is following Recommends HD in the near future. No dialysis this hospital admission. IV fluid discontinued by nephrology Discontinue rodas renal u/s 07/12 - Increased echogenicity of both kidneys IV bicarb discontinued Continue PT Enteritis CT Abdomen 07/10 - Duodenal and jejunal wall thickening concerning for an enteritis denies abd pain 07/13, Patient is tolerating PO DM2 Patient's A1c is normal, controlled Hypertension Anemia Dementia Continue home medcations Continue Supportive care Alcohol abuse Counseled on need for cessation of all alcohol Po Librium Ativan, Gabapentin and Thiamine Confusion probably related to alcohol withdrawal. Currently stable with no symptoms or signs of alcohol withdrawal. Clinically stable for discharge. Family looking at skilled rehab. Social service consulted to assist with SNF disposition.
[2022-07-15 22:28] LABS: Albumin, (SPE) 2.8 g/dL (3.8-4.8); Alpha-1-Globulins 0.3 g/dL (0.2-0.3); Alpha-2-Globulins 0.6 g/dL (0.5-0.9); Gamma Globulins 0.5 g/dL (0.8-1.7); INTERPRETATION REPORT
[2022-07-16] MEDS: INSULIN -REGULAR HUMAN 50 UNIT/0.5 ML ML SQ SCH ×4 (07:30→20:32)
[2022-07-16] MEDS: CALCITROL 0.25 MCG CAP PO SCH (08:40)
[2022-07-16] MEDS: POTASSIUM 25 MEQ EFFERV TAB PO SCH ×2 (08:40→20:29)
[2022-07-16] MEDS: VITAMIN D 1000 UNIT TAB PO SCH (08:40)
[2022-07-16] MEDS: AMLODIPINE 10 MG TAB PO SCH (08:40)
[2022-07-16] MEDS: carvediloL 6.25 MG TAB PO SCH ×2 (08:40→20:45)
[2022-07-16] MEDS: THIAMINE HCL 100 MG TABLET PO SCH ×2 (08:40→20:32)
[2022-07-16 09:46] VITALS: O2SAT 100
--- NOTE | 2022-07-16 11:45 | PN ---
Date of Progress Note: 07/16/2022 Subjective: Patient was admitted with acute kidney injury on advanced chronic kidney disease. It wa s secondary to diabetes nephropathy. The patient did not have any uremic symptoms. The patient is s till refusing dialysis. Physical Examination: Vital Signs: Blood pressure 160/88, pulse of 63, afebrile. Chest: Clear to auscultation. Heart: S1, S2. Regular. Abdomen: Soft, nontender. Extremities: No edema. Neuro: Legally blind. No tremor. No flapping. Laboratory Data: Hemoglobin 9.3. Sodium 143, potassium 3.6, bicarb 23, BUN 70, creatinine 5.7, calc ium 8.3. Current Medications: Patient on, includes: 1.IV iron. 2.Amlodipine 10 mg. 3.Carvedilol 6.25 b.i.d. 4.Clonidine patch. 5.Zofran. Assessment And Plan: 1.Chronic kidney disease, stage 5, secondary to diabetes nephropathy, hypertension, nephrosclerosis with normal sized kidney, nephrotic range proteinuria. No hyperkalemia. No acidosis. No other urem ic symptoms. I do not see any urgent need to initiate renal replacement therapy at this time. I had long discussion with the patient. Patient still on denial and refused dialysis currently, which aga in there is no urgent need for that. I also spoke with sister over the phone, explained the case for her. Apparently, patient's living condition is poor and Adult Protective Services has been involved trying to get his house in order. We will follow up. 2.Hypokalemia. We will continue p.r.n. cautious supplement as patient on advanced chronic kidney di sease. 3.Hypertension, not controlled. We just added the clonidine yesterday. Blood pressure slightly bet ter than before. We will monitor further response. 4.Diabetes as by primary. 5.Alcohol dependent. Continue current p.r.n. treatment with thiamine. 6.Secondary hyperparathyroidism: Continue calcitriol. 7.Anemia of chronic kidney disease. Serum protein electrophoresis was negative for any M-spike. I am going to continue IV iron and we will follow up. No need for AISHA for the time being as just we st arted the IV iron. 8.Deconditioning, poor living situation. home weatherizing worker on board. Plan for temporary SNF. CONRADO/CHEIKH Voice ID: [id number] Report ID: [id number]
[2022-07-16 12:05] LABS: KAPPA LIGHT CHAIN, FREE SERUM 89.9 mg/L (3.3-19.4)
[2022-07-16 14:55] LABS: SARS-CoV-2 Antigen Rapid Res Negative (Negative)
--- NOTE | 2022-07-16 16:58 | P.PN ---
Subjective Date of Service: 07/16/22 Chief Complaint: Acute on chronic renal failure severe hypertension Patient has no new complaints today. No issues overnight. Patient is tolerating diet. Physical Examination - Vital Signs Temperature: 98.6 F Blood Pressure: 118/69 Pulse: 67 Respirations: 16 Pulse Ox (%): 100 Assessment And Plan - Plan Physical Exam: GEN: Alert, oriented, NAD, confused, HEENT: blind. CV: Regular rate and rhythm, no edema Pulm: Clear to auscultation bilaterally, adequate breath sounds bilaterally. ABD: Soft, nontender, nondistended Integumentary: No rashes Neuro: Normal speech, normal affect Rodas in place vitals reviewed Diagnosis Acute on chronic renal failure, CKD5 ESRD Hypokalemia Enteritis Hypertension DM2 Anemia Dementia Alcohol abuse legally blind Acute on chronic renal failure, CKD5 ESRD Hypokalemia Pt was advised to start HD in March 2022 for GFR 10 - refused at the time nephrotic range proteinura likely secondary to diabetic kidney disease no hydronephrosis on imaging Nephrology is following Recommends HD in the near future. No dialysis this hospital admission. IV fluid discontinued by nephrology Discontinue rodas renal u/s 07/12 - Increased echogenicity of both kidneys IV bicarb discontinued Continue PT Enteritis CT Abdomen 07/10 - Duodenal and jejunal wall thickening concerning for an enteritis denies abd pain 07/13. Patient is tolerating PO Symptoms resolved. DM2 Patient's A1c is normal, controlled Hypertension Anemia Dementia Continue home medications Continue Supportive care Alcohol abuse Alcohol cessation advised. Initial confusion probably related to alcohol withdrawal. Currently stable with no symptoms or signs of alcohol withdrawal. Clinically stable for discharge. Family looking at skilled rehab. Patient accepted to skilled rehab and waiting for a bed.
[2022-07-17 04:47] LABS: Albumin 2.2 g/dL (3.4-5.0); Phosphorus 5.2 mg/dL (2.5-4.9)
[2022-07-17] MEDS: INSULIN -REGULAR HUMAN 50 UNIT/0.5 ML ML SQ SCH ×2 (07:30→11:30)
[2022-07-17] MEDS: carvediloL 6.25 MG TAB PO SCH (09:00)
[2022-07-17] MEDS: VITAMIN D 1000 UNIT TAB PO SCH (10:31)
[2022-07-17] MEDS: POTASSIUM 25 MEQ EFFERV TAB PO SCH (10:31)
[2022-07-17] MEDS: AMLODIPINE 10 MG TAB PO SCH (10:33)
[2022-07-17] MEDS: THIAMINE HCL 100 MG TABLET PO SCH (10:33)
[2022-07-17] MEDS: CALCITROL 0.25 MCG CAP PO SCH (10:33)
[2022-07-17 13:44] VITALS: BP 151/77; TEMP 98.2
--- NOTE | 2022-07-17 14:45 | P.PN ---
Subjective Date of Service: 07/17/22 Chief Complaint: Acute on chronic renal failure severe hypertension Subjective: No new changes Physical Examination - Vital Signs Temperature: 98.2 F Blood Pressure: 151/77 Pulse: 62 Respirations: 16 Pulse Ox (%): 100 - Physical Exam General: In no apparent distress HEENT: Atraumatic, Normocephalic Neck: Supple, JVD not distended Respiratory: Clear to auscultation bilaterally Cardiovascular: No rubs, No murmurs Gastrointestinal: Soft and benign, No guarding Musculoskeletal: No clubbing Integumentary: No warmth Neurological: Normal tone Lymphatics: No axilla or inguinal lymphadenopathy Urinary: Other (no bladder distention) External genitalia: Deferred Rectal: Deferred Assessment And Plan - Plan 1. Chronic kidney disease, stage 5, secondary to diabetes nephropathy, hypertension, nephrosclerosis with normal sized kidney, nephrotic range proteinuria. No hyperkalemia. Patient still on denial and refused dialysis currently. I also spoke with sister over the phone, explained the case for her. Apparently, patient's living condition is poor and Adult Protective Services has been involved trying to get his house in order. We will follow up as outpt 2. Hypokalemia. We will continue p.r.n. cautious supplement as patient on advanced chronic kidney disease. 3. Hypertension, not controlled. We just added the clonidine yesterday. Blood pressure slightly better than before. We will monitor further response. 4. Diabetes as by primary. 5. Alcohol dependent. Continue current p.r.n. treatment with thiamine. 6. Secondary hyperparathyroidism: Continue calcitriol. 7. Anemia of chronic kidney disease. Serum protein electrophoresis was negative for any M-spike. I am going to continue IV iron and we will follow up. No need for AISHA for the time being as just we started the IV iron. 8. Deconditioning, poor living situation. welfare worker on board. Plan for temporary SNF. 9. Dispo. Ok to dc today.
== END 2022-07-17 15:42 | DRG 683 ==
LOC: ER 10:28 → ERHOLD 13:14 → 2ND 14:30
PROVIDERS: ADMIT Internal Medicine Sleep Medicine; ATTEND Internal Medicine
DX: N17.9 Acute kidney failure, unspecified (principal); E87.20 Acidosis, unspecified; I12.0 Hypertensive chronic kidney disease with stage 5 chronic kidney disease or end stage renal disease; F10.139 Alcohol abuse with withdrawal, unspecified; N18.6 End stage renal disease; E11.22 Type 2 diabetes mellitus with diabetic chronic kidney disease; D63.1 Anemia in chronic kidney disease; N25.81 Secondary hyperparathyroidism of renal origin; K52.9 Noninfective gastroenteritis and colitis, unspecified; E87.6 Hypokalemia; D50.9 Iron deficiency anemia, unspecified; H54.8 Legal blindness, as defined in USA; F03.90 Unspecified dementia, unspecified severity, without behavioral disturbance, psychotic disturbance, mood disturbance, and anxiety; Z79.82 Long term (current) use of aspirin; Z79.899 Other long term (current) drug therapy; Z91.148 Patient's other noncompliance with medication regimen for other reason; Z20.822 Contact with and (suspected) exposure to COVID-19; Y90.0 Blood alcohol level of less than 20 mg/100 ml
CPT/HCPCS: 36415; 70450; 74176; 76770; 80048; 80053; 80061; 80069; 80307; 81001; 82306; 82550; 82570; 82607; 82728; 82947; 83036; 83520; 83540; 83690; 83735; 83880; 83935; 83970; 84100; 84132; 84156; 84165; 84166; 84300; 84439; 84443; 84466; 85025; 85027; 86021; 86038; 86160; 86334; 86430; 86592; 86704; 86706; 86803; 87340; 87389; 87811; 97116; 97161; 99285; G0480; J0360; J1815; J2916; J7050